=== PATIENT | female | born 1995 | race African-American/Black ===

== ENCOUNTER 2017-04-01 11:15 | Day surgery (SDC) | payer OTHER ==
[~2017-04-01] VITALS: Ht 157.5 cm; Wt 66.7 kg
[~2017-04-01 11:15] MED LIST: LR 1,000 ML IV ONE
[2017-04-01] MEDS ORDERED: LIDOCAINE 1% SDV 5 ML VIAL SQ ONE (11:30)
[2017-04-01] MEDS ORDERED: dexameTHASONE 4 MG/ML 1ML VIAL (J1100) IV ONE (11:30)
[2017-04-01 12:16] LABS: CONTROL LINE UCG INT CTR LINE PRESENT
[2017-04-01] MEDS ORDERED: MIDAZOLAM INJ 2 MG/2 ML VIAL (J2250) As Ordered ONE (12:55)
[2017-04-01] MEDS ORDERED: LIDOCAINE 2% INJ 100 MG/5 ML SDV (FOR ANES.) As Ordered ONE (12:55)
[2017-04-01] MEDS ORDERED: SUCCINYLCHOLINE 100 MG/5 ML SYRINGE (J0330) As Ordered ONE (12:55)
[2017-04-01] MEDS ORDERED: PROPOFOL 200 MG/20 ML VIAL As Ordered ONE (12:55)
[2017-04-01] MEDS ORDERED: fentaNYL 100 MCG/2 ML INJECTION (J3010) As Ordered ONE ×2 (12:55→13:00)
[2017-04-01] MEDS ORDERED: PERCOCET 5MG/325MG TAB PO PRN (13:45)
[2017-04-01] MEDS ORDERED: LR 1,000 ML IV SCH ×2 (13:45)
[2017-04-01] MEDS ORDERED: ONDANSETRON 4MG/2ML VIAL (J2405) IV PRN ×2 (13:45)
[2017-04-01] MEDS ORDERED: fentaNYL 100 MCG/2 ML INJECTION (J3010) IV PRN (13:45)
[2017-04-01] MEDS ORDERED: HYDROmorphone HCL 1 MG/ML SYRINGE (J1170) IV PRN (13:45)
[2017-04-01] MEDS ORDERED: IBUPROFEN 100 MG/5 ML SUSP UDC DYE FREE As Ordered ONE (14:20)
[2017-04-01] MEDS ORDERED: IBUPROFEN 100 MG/5 ML SUSP UDC DYE FREE PO PRN (14:30)
[2017-04-01 16:20] VITALS: BP 110/71
--- NOTE | 2017-04-15 09:07 | RO ---
DATE OF PROCEDURE: 04/01/2017 PREOPERATIVE DIAGNOSIS: Adenotonsillar hypertrophy. POSTOPERATIVE DIAGNOSIS: Adenotonsillar hypertrophy. PROCEDURE PERFORMED: Tonsillectomy and adenoidectomy. SURGEON: Philip Petersen MD WASHING MACHINE ASSEMBLER: ANESTHESIA: General. CLINICAL PREAMBLE: This 22-year-old woman presented to the office with history of enlarged tonsils and chronic nasal congestion. Physical examination confirmed the presence of hypertrophic tonsils. Management options to include surgery listed above had been discussed. The patient understood and consented to the procedure. DESCRIPTION OF PROCEDURE: Patient was identified in preoperative holding and brought to the operating room in stable condition. In supine position on the operating table, patient received general anesthesia followed by orotracheal intubation without incident. Patient was prepped and draped in the usual fashion for the procedure. The Hebert-Josh mouth gag was inserted and suspended. The red rubber catheter was inserted via the right naris to retract the soft palate. Using a mirror, the hypertrophic adenoid tissue was visualized. Using the Coblator wand set at 7 for Coblation and 3 for coagulation, the hypertrophic adenoid tissue was ablated. Hemostasis was achieved. The right tonsil was medialized using curved Allis forceps. Using the Coblator wand set at 7 for Coblation and 3 for coagulation, mucosal incision was made over the superior pole of the right tonsil. The tonsil capsule was identified, and dissection was carried out along this plane to excise the right tonsil. The left tonsil was then similarly dissected out, as well. At the end of the procedure, both tonsillar beds and adenoid beds were free of bleeding. Estimated blood loss was less than 10 mL. No complication was encountered. Sponge and instrument counts were correct at the end of the procedure. General anesthesia was reversed, and patient was extubated and brought to the recovery room in stable condition.
== END 2017-04-01 16:25 | disposition home or self-care (01) ==
LOC: M SDC 11:15
PROVIDERS: ATTEND Otolaryngology
DX: J35.3 Hypertrophy of tonsils with hypertrophy of adenoids (principal); R51 Headache; R06.83 Snoring
CPT/HCPCS: 42821; 84703; 88302; J0330; J2250; J3010

== ENCOUNTER 2017-04-08 01:58 | Emergency (ER) | payer OTHER ==
[~2017-04-08] VITALS: Ht 157.5 cm; Wt 67.2 kg
[2017-04-08] MEDS ORDERED: HYDR10SO PO (02:13)
[2017-04-08] MEDS ORDERED: IBUP100S2 PO (02:13)
[2017-04-08 04:38] VITALS: BP 118/80
== END 2017-04-08 05:52 | disposition home or self-care (01) ==
LOC: M ED 01:58
DX: J95.830 Postprocedural hemorrhage of a respiratory system organ or structure following a respiratory system procedure (principal)